=== PATIENT | female | born 1995 | race Caucasian/White ===

== ENCOUNTER → 2016-04-03 | Outpatient (REF) | payer BC | END | disposition home or self-care (01) | LOC: M LAB REF 13:01 | PROVIDERS: ATTEND Advanced Practice Midwife | DX: Z34.83 Encounter for supervision of other normal pregnancy, third trimester (principal); Z36 Encounter for antenatal screening of mother; Z3A.00 Weeks of gestation of pregnancy not specified ==

== ENCOUNTER → 2016-04-25 | Outpatient (REF) | payer BC | LOC: M LAB REF 13:24 | PROVIDERS: ATTEND Advanced Practice Midwife | DX: Z34.03 Encounter for supervision of normal first pregnancy, third trimester (principal) ==

== ENCOUNTER 2016-05-25 12:03 | Inpatient (IN) | payer BC ==
[2016-05-25] VITALS (8 sets, daily range): BP systolic 105–126; BP diastolic 58–79
[~2016-05-25] VITALS: Ht 167.6 cm; Wt 65.0 kg
[2016-05-25] MEDS ORDERED: PRENTAB9 PO (12:09)
[2016-05-25 13:30] LABS: MEAN CORPUSCULAR HEMOGLOBIN 32.5 pg (27.0-33.0); MEAN CORPUSCULAR HGB CONC 34.4 g/dl (32.0-36.5); MEAN CORPUSCULAR VOLUME 94.5 fl (80.0-96.0); RED CELL DISTRIBUTION WIDTH 12.9 % (11.5-14.5)
--- NOTE | 2016-05-25 14:08 | HPE ---
DATE OF ADMISSION: 05/25/2016 Nohelia is a 21-year-old 1, para 0 at 40-2/7 weeks gestation with an estimated date of confinement (EDC) of 05/23/2016 based on last normal menstrual period and confirmed by first trimester ultrasound. She presents to labor and delivery today with report of a spontaneous rupture of membranes at approximately 06:30. Reports the fluid is clear. Denies vaginal bleeding. Has had continual leakage of fluid, some occasional cramps and contractions and the fetus has been active. care was initiated at [facility] in the first trimester. course has been uncomplicated. OB HISTORY: Primigravida. OB LABS: Blood type is O negative. Antibody screen negative. Rubella immune. VDRL nonreactive. Urine culture no growth. Hep B surface antigen negative. HIV negative. Hep C antibody negative. Gonorrhea and chlamydia negative. She did decline genetic serum screening markers. Gestational diabetic screening 78. Her Group B Streptococcus (GBS) is negative. PAST MEDICAL HISTORY: Vaccinated for childhood varicella, otherwise negative. SURGERIES: None. FAMILY HISTORY: Hypertension. SOCIAL HISTORY: The patient is single. However, the father of the baby is at bedside and he is very supportive. She also has family support as well. She is a nonsmoker. Denies alcohol and drug use. No history of abuse physical, sexual and emotional and no history of any sexually transmitted infections. ALLERGIES: No known drug allergies. CURRENT MEDICATIONS: Include: - vitamins OBJECTIVE: Temperature 98.4, pulse 99, respirations 18, blood pressure 121/77. heart rate is 130 with moderate variability, positive accelerations, no decelerations observed. She is saad about every 2-5 minutes. They are mild to palpation. Sterile spec exam positive Nitrazine. Positive fern. Negative Valsalva. Negative pooling. Sterile vaginal exam 1 cm dilated, 80% effaced, -1 station, can palpate membranes intact. Likely leaking amniotic fluid from a higher leak or forebag rupture. ASSESSMENT: Intrauterine at 40-2/7 weeks gestation. heart rate category 1. Premature rupture of membranes. PLAN: Admit the patient to labor and delivery. Labs. Saline lock. Out of bed ad asif. Regular diet at this time. Reviewed expectant management versus labor augmentation/induction. The patient desires expectant management at this time. We will wait a few hours. I will reassess the patient's status and change for there. I do anticipate an active labor and a vaginal delivery.
[2016-05-25] MEDS ORDERED: OXYTOCIN DRIP 30 UNITS in APPROPRIATE DILUENT 1 EA IV SCH (14:45)
[2016-05-25] MEDS: LR 1,000 ML IV SCH ×2 (16:21→20:23)
[2016-05-25] MEDS ORDERED: PROMETHAZINE INJ 25 MG/ML VIAL (J2550) IV ONE (19:00)
[2016-05-25] MEDS ORDERED: BUTORPHANOL 2 MG/ML INJ (J0595) IV ONE (19:00)
[2016-05-25] MEDS ORDERED: FENTANYL 2MCG/ML ROPIVACAINE 0.2% NACL 250 ML CADD As Ordered ONE (21:09)
[2016-05-25] MEDS ORDERED: ONDANSETRON 4MG/2ML VIAL (J2405) IV PRN (22:30)
[2016-05-25] MEDS ORDERED: REFRIGERATOR IV KEYS XX PRN (22:30)
[2016-05-25] MEDS ORDERED: ePHEDrine SULFATE 25 MG/5 ML(5MG/ML) SYRINGE IV PRN (22:30)
[2016-05-25] MEDS ORDERED: diphenhydrAMINE INJ 50MG/ML VIAL (J1200) IV PRN (22:30)
[2016-05-25] MEDS ORDERED: EPIDURAL COMMENT XX SCH (22:30)
[2016-05-25] MEDS ORDERED: EPIDURAL/PCA KEYS XX PRN (22:30)
[2016-05-25] MEDS ORDERED: FENTANYL/ROPIVACAINE/NACL CADD 250 ML EPIDURAL SCH (22:30)
[2016-05-25] MEDS ORDERED: LACTATED RINGER'S 1000 ML IV PRN (22:30)
[2016-05-25] MEDS ORDERED: NALOXONE INJ 0.4 MG/1 ML VIAL (J2310) IV PRN (22:30)
[2016-05-26 00:01] LABS: CORD GAS ABE A -4.9; CORD GAS HCO3 A 22.3 MEQ/L; CORD GAS O2 SAT A 17.1 %; CORD GAS PCO2 A 49.2 mmHg; CORD GAS PH A 7.275 UNITS; CORD GAS PO2 A 11.6 mmHg; CORD GAS SBC A 18.6 MEQ/L; CORD GAS TCO2 A 23.9 MEQ/L
[2016-05-26 00:02] LABS: CORD GAS ABE V -4.5; CORD GAS HCO3 V 20.9 MEQ/L; CORD GAS O2 SAT V 50.4 %; CORD GAS PCO2 V 39.9 mmHg; CORD GAS PH V 7.337 UNITS; CORD GAS PO2 V 21.7 mmHg; CORD GAS SBC V 19.6 MEQ/L; CORD GAS TCO2 V 22.1 MEQ/L
[2016-05-26] MEDS ORDERED: OXYTOCIN DRIP 30 UNITS in APPROPRIATE DILUENT 1 EA IV SCH (00:36)
[2016-05-26] MEDS ORDERED: DIBUCAINE 1% OINTMENT 30GM TOP PRN (00:45)
[2016-05-26] MEDS ORDERED: DOCUSATE SODIUM 100 MG CAP PO PRN (00:45)
[2016-05-26] MEDS ORDERED: METHYLERGONOVINE MALEATE 0.2 MG TAB PO PRN (00:45)
[2016-05-26] MEDS ORDERED: RHOGAM 300 MCG (1500 IU) INJ (J2790) IM SCH (00:45)
[2016-05-26] MEDS ORDERED: MEASLES,MUMPS,RUBELLA VACCINE INJ (MMR-II) (90707) SC SCH (00:45)
[2016-05-26] MEDS ORDERED: ACETAMINOPHEN 500 MG TAB PO PRN (00:45)
[2016-05-26] MEDS ORDERED: LIDOCAINE 1% MDV INJ 50 ML VIAL SC ONE (01:00)
[2016-05-26] MEDS: IBUPROFEN 800 MG TAB PO PRN ×3 (01:14→17:30)
--- NOTE | 2016-05-26 01:39 | DN ---
DATE: 05/25/2016 Nohelia is a 21-year-old 1, para 1-0-0-1 now who was admitted to labor and delivery with premature rupture of membranes. IV Pitocin was started and active labor did ensue. She utilized IV pain medication as well as an epidural for her labor coping. She progressed to full dilation at 2243. She pushed to a normal spontaneous vaginal delivery of a live male infant in OA position with restitution to LOT position at 2348. There was no nuchal cord. There was noted heart rate low baseline of 95, moderate variability, positive accels, repetitive late decelerations, although heart rate did maintain moderate variability with accelerations throughout second stage. The was placed on maternal abdomen crying and active. His mouth and nares were bulb suctioned. The cord was clamped times two and cut by the father of baby. Cord blood was obtained. Cord gas arterial 7.275, cord pH with a base excess of negative 4.9. Venous cord gas pH of 7.337 with a base excess of negative 4.5. There was spontaneous expulsion of an intact placenta with three-vessel cord by Schultze mechanism was at 0000. Uterine hemostasis achieved with IV Pitocin rapid infusion and uterine fundal massage. Estimated blood loss 350 mL. Perineum and vagina inspected and noted to have a first-degree midline laceration. Laceration was repaired with 3-0 Rapide following infiltration of lidocaine in the usual fashion. [place] male weighed 7 pounds 3 ounces, 3268 grams, 9/9. Mom plans to breastfeed her son. The family have named him Reg. At the close of delivery, lap counts, instrument counts and needle counts were correct and verified. [facility]ITAL[facility]
[2016-05-26 03:00] VITALS: BP 108/60
[2016-05-26 05:28] VITALS: BP 112/60
[2016-05-26] MEDS: PRENATAL VITAMIN TAB PO SCH (07:55)
[2016-05-26 18:18] VITALS: BP 110/57
[2016-05-27 05:33] VITALS: BP 115/67
[2016-05-27] MEDS: PRENATAL VITAMIN TAB PO SCH (08:56)
[2016-05-27] MEDS ORDERED: IBUP-1114 PO (11:14)
[2016-05-27] MEDS ORDERED: ACET50TA PO (11:14)
[2016-05-27] MEDS: IBUPROFEN 800 MG TAB PO PRN (11:57)
== END 2016-05-27 12:35 | disposition home or self-care (01) | DRG 560 ==
LOC: M LDO 12:03 → M LDI 12:40 → M OBS 05-26 02:33
PROVIDERS: ADMIT Advanced Practice Midwife; ATTEND Advanced Practice Midwife
PROC: 10E0XZZ Delivery of Products of Conception, External Approach (ICD-10-PCS; principal; 2016-05-25)
PROC: 0HQ9XZZ Repair Perineum Skin, External Approach (ICD-10-PCS; 2016-05-25)
DX: O48.0 Post-term pregnancy (principal); O70.0 First degree perineal laceration during delivery; Z37.0 Single live birth; Z3A.40 40 weeks gestation of pregnancy; Z79.899 Other long term (current) drug therapy

== ENCOUNTER → 2018-02-03 | Outpatient (CLI) | payer BC ==
[2018-02-03 12:52] LABS: BASO % 0.1 % (0.0-1.0); EOS % 0.4 % (0.0-3.0); HEMATOCRIT 36.6 % (36.0-47.0); HEMOGLOBIN 11.9 g/dl (12.0-15.5); IMMATURE GRANULOCYTE % 0.4 % (0-3.0); LYMPH # 1.8 10^3/uL (1.5-6.5); MEAN CORPUSCULAR HGB CONC 32.5 g/dl (32.0-36.5); MEAN CORPUSCULAR VOLUME 95.3 fl (80.0-96.0); MONO # 0.5 10^3/uL (0.0-0.8); MONO % 5.9 % (0.0-5.0); NEUTROPHILS # 5.4 10^3/uL (1.8-7.7); NEUTROPHILS % 70.2 % (36.0-66.0); PLATELET COUNT, AUTOMATED 266 10^3/uL (150-450); RED BLOOD COUNT 3.84 10^6/uL (4.00-5.40); RED CELL DISTRIBUTION WIDTH 12.1 % (11.5-14.5); WHITE BLOOD COUNT 7.7 10^3/uL (4.0-10.0)
[2018-02-03 14:41] LABS: CHLAMYDIA DNA AMPLIFICATION NEGATIVE (NEGATIVE); GC DNA AMPLIFICATION NEGATIVE (NEGATIVE)
[2018-02-03 15:02] LABS: HBsAg Prenatal NEGATIVE (NEGATIVE); HIV 1&2 SCREEN CENTAUR NEGATIVE (NEGATIVE); RUBELLA IgG QUALITATIVE IMMUNE (IMMUNE)
[2018-02-03 15:02] LABS: HEPATITIS C VIRUS ABY INDEX 0.1 INDEX (<0.8)
== END ==
LOC: M WUC 10:02
DX: Z34.81 Encounter for supervision of other normal pregnancy, first trimester (principal); Z3A.08 8 weeks gestation of pregnancy
CPT/HCPCS: 86762

== ENCOUNTER → 2018-03-26 | Outpatient (CLI) | payer BC ==
[~2018-03-26] MED LIST: IBUP-1114 PO; MAPA500T2 PO; PRENTAB9 PO
--- NOTE | 2018-03-26 22:44 | REP ---
Clinical: Anatomical evaluation. Comparison: None . Findings: Examination demonstrates a single live intrauterine in cephalic presentation. motion is identified by technologist. Placenta is noted anterior and grade grade 1 without evidence for placenta previa or abruption. Amniotic fluid volume is normal. Cervix measures 3.5 cm in length and appears closed. No evidence for nuchal cord. Gestational age by current measurements 18 weeks 3 days with YOVANNY 08/24/2018 . FHR equals 150 beats per minute. BPD 4.2 cm 18 weeks 6 days HC 15.7 cm 18 weeks 4 days AC 12.7 cm 18 weeks 2 days FL 2.8 cm 18 weeks 5 day HL 2.7 cm 18 weeks 5 days HC/AC ratio 1.23 Estimated weight 243 grams ( 47 percentile). Anatomical assessment demonstrates normal structures including cranium, choroid plexus, cavum, cerebellum/posterior fossa, facial features, lungs, four-chamber heart/left ventricular outflow tract, diaphragm, stomach, cord insertion/three-vessel cord, kidneys/bladder, and extremities. Limited evaluation of the right cardiac ventricular outflow tract and spine noted. Impression: Single live intrauterine in cephalic presentation. Anatomical limitations as described above warrant reevaluation and follow-up. No gross abnormality appreciated. Electronically Signed by Willard Silvestre MD 03/26/2018 10:36 P
== END ==
LOC: M SMT 09:28
PROVIDERS: ATTEND Advanced Practice Midwife
DX: Z36.89 Encounter for other specified antenatal screening (principal); Z3A.18 18 weeks gestation of pregnancy

== ENCOUNTER → 2018-04-23 | Outpatient (CLI) | payer BC ==
--- NOTE | 2018-04-24 04:59 | REP ---
Clinical: Anatomical evaluation. Comparison: 03/26/2018 . Findings: Examination demonstrates a single live intrauterine in cephalic presentation. motion is identified by technologist. Placenta is noted anterior and grade grade 1 without evidence for placenta previa or abruption. Amniotic fluid volume is normal. Cervix measures 4.2 cm in length and appears closed. Nuchal cord noted. Gestational age by LMP 22 weeks 3 days with YOVANNY 08/24/2018 . Gestational age by current measurements 22 weeks 3 days with YOVANNY 08/24/2018 . FHR equals 144 beats per minute. Estimated weight 519 grams ( 49th percentile). Anatomical assessment demonstrates normal structures including cranium, choroid plexus, cavum, cerebellum/posterior fossa, facial features, lungs, four-chamber heart/ventricular outflow tracts, diaphragm, stomach, cord insertion/three-vessel cord, kidneys/bladder, spine, and extremities. Impression: 1. Single live intrauterine in cephalic presentation demonstrating appropriate interval growth. 2. Nuchal cord noted. 3. Anatomical assessment is complete and normal. Electronically Signed by Willard Silvestre MD 04/24/2018 04:51 A
== END ==
LOC: M SMT 14:44
PROVIDERS: ATTEND Advanced Practice Midwife
DX: Z34.82 Encounter for supervision of other normal pregnancy, second trimester (principal); Z3A.22 22 weeks gestation of pregnancy

== ENCOUNTER → 2018-06-06 | Outpatient (REF) | payer BC | LOC: M LAB REF 17:07 | PROVIDERS: ATTEND Advanced Practice Midwife | DX: Z34.82 Encounter for supervision of other normal pregnancy, second trimester (principal); Z3A.00 Weeks of gestation of pregnancy not specified ==

== ENCOUNTER → 2018-06-10 | Outpatient (CLI) | payer BC ==
[2018-06-10 14:10] LABS: BASO % 0.4 % (0.0-1.0); EOS % 0.1 % (0.0-3.0); HEMOGLOBIN 12.9 g/dl (12.0-15.5); LYMPH # 1.4 10^3/uL (1.5-6.5); LYMPH % 13.8 % (24.0-44.0); MEAN CORPUSCULAR HEMOGLOBIN 32.1 pg (27.0-33.0); MEAN CORPUSCULAR HGB CONC 33.1 g/dl (32.0-36.5); MONO # 0.4 10^3/uL (0.0-0.8); MONO % 4.4 % (0.0-5.0); NEUTROPHILS # 7.8 10^3/uL (1.8-7.7); NEUTROPHILS % 80.1 % (36.0-66.0); PLATELET COUNT, AUTOMATED 230 10^3/uL (150-450); RED BLOOD COUNT 4.02 10^6/uL (4.00-5.40); WHITE BLOOD COUNT 9.8 10^3/uL (4.0-10.0)
== END ==
LOC: M SMT 09:52
PROVIDERS: ATTEND Advanced Practice Midwife
DX: Z34.82 Encounter for supervision of other normal pregnancy, second trimester (principal)
CPT/HCPCS: 36415; 82950; 85025; 86850; 86900; 86901; J2790

== ENCOUNTER → 2018-07-31 | Outpatient (REF) | payer BC | LOC: M LAB REF 13:08 | PROVIDERS: ATTEND Advanced Practice Midwife | DX: Z34.83 Encounter for supervision of other normal pregnancy, third trimester (principal); Z3A.00 Weeks of gestation of pregnancy not specified ==

== ENCOUNTER → 2018-08-07 | Outpatient (CLI) | payer BC ==
--- NOTE | 2018-08-08 03:24 | REP ---
Clinical: Growth evaluation. Comparison: 04/23/2018 . Findings: Examination demonstrates a single live intrauterine in cephalic presentation. motion is identified by technologist. Placenta is noted anterior and grade two without evidence for placenta previa or abruption. Amniotic fluid volume is normal. No evidence for nuchal cord. Gestational age by LMP 37 weeks 4 days with YOVANNY 08/24/2018 . Gestational age by current measurements 37 weeks 6 days with YOVANNY 2018 . FHR equals 153 beats per minute. BPD 9.3 cm 38 weeks 0 days HC 33.5 cm 38 weeks 2 days AC 33.3 cm 37 weeks 1 day FL 7.5 cm 38 weeks 3 days HL 6.4 cm 37 weeks 2 days HC/AC ratio 1.01 Estimated weight 3287 grams ( 58 percentile). Amniotic fluid index: 10.6 cm (7.4 - 24.1) Umbilical cord SD ratio: 2.50 Impression: Single live advanced gestation in cephalic presentation demonstrating appropriate interval growth. Electronically Signed by Willard Silvestre MD 08/08/2018 03:15 A
== END ==
LOC: M RAD 08:49
PROVIDERS: ATTEND Advanced Practice Midwife
DX: O26.843 Uterine size-date discrepancy, third trimester (principal); Z3A.37 37 weeks gestation of pregnancy

== ENCOUNTER 2018-08-17 10:50 | Inpatient (IN) | payer BC ==
[2018-08-17] VITALS (12 sets, daily range): BP systolic 83–137; BP diastolic 46–77
[~2018-08-17] VITALS: Ht 167.6 cm; Wt 62.1 kg
[2018-08-17] MEDS ORDERED: LR 1,000 ML IV SCH (14:00)
[2018-08-17] MEDS ORDERED: OXYTOCIN DRIP 30 UNITS in APPROPRIATE DILUENT 1 EA IV SCH (14:00)
[2018-08-17 14:50] LABS: HEMATOCRIT 35.7 % (36.0-47.0); HEMOGLOBIN 11.9 g/dl (12.0-15.5); MEAN CORPUSCULAR HEMOGLOBIN 32.1 pg (27.0-33.0); MEAN CORPUSCULAR HGB CONC 33.3 g/dl (32.0-36.5); MEAN CORPUSCULAR VOLUME 96.2 fl (80.0-96.0); PLATELET COUNT, AUTOMATED 188 10^3/uL (150-450); RED BLOOD COUNT 3.71 10^6/uL (4.00-5.40); WHITE BLOOD COUNT 10.3 10^3/uL (4.0-10.0)
--- NOTE | 2018-08-17 15:56 | HPE ---
DATE OF ADMISSION: 08/17/2018 23-year-old, 2, para 1 female at 39 and 0/7 weeks gestation by last menstrual period and consistent with 9 week ultrasound, estimated date of confinement (EDC) is 08/24/2018, who presents with regular contractions every 3 to 4 minutes, the contractions have increased in intensity. She had a trickle of fluid and thought she might be leaking but she was not sure. Fluid is continuing to leak intermittently. She has good movement. No vaginal bleeding. COURSE: The patient initiated care at 8 weeks gestation on 01/17/2018. Her first trimester blood pressure was 112/64, weight 118 pounds. She had no complications. OBSTETRICAL HISTORY: May 2016, 40 week vaginal delivery of 7 pounds 3 ounce male . MEDICAL HISTORY: None. SURGICAL HISTORY: Breast augmentation. ALLERGIES: None. SOCIAL HISTORY: The patient denies cigarettes, alcohol or drug use during . Father of the baby is involved. She lives in [place]. FAMILY HISTORY: Noncontributory. PHYSICAL EXAMINATION: Blood pressure is 105/71, pulse 65, respiratory rate 16, afebrile. She appears mildly uncomfortable. Head and neck exam is normal. Lungs are clear. Heart has regular rate and rhythm. Abdomen is nontender, gravid. heart tones category 1. Cervix is 2 cm, 90%, -2, posterior, soft, vertex. Contractions every 2 to 4 minutes, moderately strong. Sterile speculum examination is negative ferning and Nitrazine, negative pool. Extremities are nontender. LABORATORIES: Blood type is O negative, Rubella immune, RPR nonreactive. Diabetes screen 78, Group B streptococcus (GBS) negative on 07/31/2018. ASSESSMENT: 23-year-old 2, para 1 at 39 and 0/7 weeks gestation who presents in early labor. PLAN: Contractions seem to be increasing in intensity so the patient will be admitted. May require Pitocin augmentation.
[2018-08-17] MEDS ORDERED: FENTANYL 2MCG/ML ROPIVACAINE 0.2% IN 0.9% NACL 100ML IVBAG As Ordered ONE (20:00)
[2018-08-17] MEDS ORDERED: DIBUCAINE 1% OINTMENT 30GM TOP PRN (21:30)
[2018-08-17] MEDS ORDERED: METHYLERGONOVINE MALEATE 0.2 MG TAB PO PRN (21:30)
[2018-08-17] MEDS ORDERED: DOCUSATE SODIUM 100 MG CAP PO PRN (21:30)
[2018-08-17] MEDS ORDERED: ONDANSETRON 4MG/2ML VIAL (J2405) IV PRN (21:30)
[2018-08-17] MEDS ORDERED: RHOGAM 300 MCG (1500 IU) INJ (J2790) IM SCH (21:30)
[2018-08-17] MEDS ORDERED: OXYTOCIN DRIP 30 UNITS in APPROPRIATE DILUENT 1 EA IV ONE (21:30)
[2018-08-17] MEDS ORDERED: MEASLES,MUMPS,RUBELLA VACCINE INJ (MMR-II) (90707) SC SCH (21:30)
[2018-08-17] MEDS ORDERED: LIDOCAINE 1% MDV 20ML VIAL INFIL ONE (21:30)
[2018-08-18] MEDS: ACETAMINOPHEN 500 MG TAB PO PRN ×2 (01:53→09:01)
[2018-08-18] MEDS: IBUPROFEN 800 MG TAB PO PRN ×2 (02:41→11:57)
[2018-08-18 06:03] VITALS: BP 111/71
[2018-08-18] MEDS: PRENATAL VITAMINS CHEWABLE TABLET PO SCH (09:00)
--- NOTE | 2018-08-18 12:48 | DN ---
DATE: 08/17/2018 PREDELIVERY DIAGNOSIS: 39 and 0/7 weeks gestation, labor. POSTDELIVERY DIAGNOSIS: Delivered. PROCEDURE: Spontaneous vaginal delivery. CH[employer]OL FINANCE OFFICER: Dr. Jose Gann ANESTHESIA: None. ESTIMATED BLOOD LOSS: 300 mL. FINDINGS: 7 pound 4 ounce female infant, Apgars 9 and 9. DELIVERY SUMMARY: After a short second stage of approximately 10 minutes, the patient had spontaneous delivery of a 7 pound 4 ounce female , Apgars 9 and 9, with no delivery anesthesia. There was no nuchal cord. The shoulders delivered with ease. The was handed to the mother. The cord was doubly clamped and cut. The placenta delivered spontaneously and appeared to be intact. The patient received IV Pitocin immediately after delivery of the placenta. A first degree perineal laceration was repaired with #2-0 chromic under local anesthesia in the usual fashion. Sponge and needle counts were correct.
[2018-08-18 18:05] VITALS: BP 108/64
[2018-08-19] MEDS: IBUPROFEN 800 MG TAB PO PRN (00:39)
[2018-08-19 05:31] VITALS: BP 96/50
[2018-08-19] MEDS: PRENATAL VITAMINS CHEWABLE TABLET PO SCH (08:02)
[2018-08-19] MEDS ORDERED: ACET-683 PO (11:17)
[2018-08-19] MEDS ORDERED: IBUP80TA PO (11:17)
== END 2018-08-19 12:10 | disposition home or self-care (01) | DRG 560 ==
LOC: M LDO 10:50 → M LDI 13:26 → M OBS 23:13
PROVIDERS: ADMIT Specialist; ATTEND Specialist
PROC: 10E0XZZ Delivery of Products of Conception, External Approach (ICD-10-PCS; principal; 2018-08-17)
PROC: 0HQ9XZZ Repair Perineum Skin, External Approach (ICD-10-PCS; 2018-08-17)
DX: O70.0 First degree perineal laceration during delivery (principal); Z3A.39 39 weeks gestation of pregnancy; Z37.0 Single live birth

== ENCOUNTER 2019-03-24 11:35 | Emergency (ER) | payer BC ==
[~2019-03-24] VITALS: Ht 167.6 cm; Wt 52.3 kg
[~2019-03-24 11:35] MED LIST changes: +ACET-683 PO; +IBUP80TA PO
[2019-03-24] MEDS ORDERED: SERT-138 (11:51)
[2019-03-24 14:55] LABS: BASO % 0.3 % (0.0-1.0); EOS # 0.1 10^3/uL (0.0-0.5); EOS % 0.5 % (0.0-3.0); HEMATOCRIT 42.4 % (36.0-47.0); HEMOGLOBIN 13.7 g/dl (12.0-15.5); MEAN CORPUSCULAR HEMOGLOBIN 30.5 pg (27.0-33.0); MEAN CORPUSCULAR HGB CONC 32.3 g/dl (32.0-36.5); MEAN CORPUSCULAR VOLUME 94.4 fl (80.0-96.0); MONO # 0.6 10^3/uL (0.0-0.8); MONO % 4.5 % (0.0-5.0); NEUTROPHILS # 8.3 10^3/uL (1.5-8.5); NEUTROPHILS % 68.8 % (36.0-66.0); PLATELET COUNT, AUTOMATED 351 10^3/uL (150-450); RED BLOOD COUNT 4.49 10^6/uL (4.00-5.40); WHITE BLOOD COUNT 12.1 10^3/uL (4.0-10.0)
[2019-03-24 15:13] LABS: ALBUMIN 4.6 GM/DL (3.2-5.2); ALT/SGPT 13 U/L (12-78); BILIRUBIN,DIRECT 0.2 MG/DL (0.0-0.2); BILIRUBIN,TOTAL 0.5 MG/DL (0.2-1.0); BLOOD UREA NITROGEN 9 MG/DL (7-18); CALCIUM LEVEL 10.1 MG/DL (8.5-10.1); CARBON DIOXIDE LEVEL 24 MEQ/L (21-32); CHLORIDE LEVEL 103 MEQ/L (98-107); CREATININE FOR GFR 0.67 MG/DL (0.55-1.30); GLOMERULAR FILTRATION RATE > 60.0 (>60); GLUCOSE, FASTING 83 MG/DL (70-100); LIPASE 53 U/L (73-393); POTASSIUM SERUM 3.9 MEQ/L (3.5-5.1); SODIUM LEVEL 137 MEQ/L (136-145); TOTAL PROTEIN 8.6 GM/DL (6.4-8.2)
[2019-03-24 15:19] LABS: HCG, SERUM QUALITATIVE POSITIVE (NEGATIVE)
[2019-03-24 18:04] LABS: HCG, SERUM QUANTITATIVE 259 MIU/ML
--- NOTE | 2019-03-24 18:25 | REPVR ---
PROCEDURE INFORMATION: Exam: US First Trimester, Transabdominal Exam date and time: 03/24/2019 5:52 PM Age: 24 years old Clinical indication: complicated by abdominal or pelvic pain; Lower; First trimester; Gestational age or lmp: 4wks; ; Additional info: Vaginal bleeding TECHNIQUE: Imaging protocol: Real-time transabdominal obstetrical ultrasound of the maternal pelvis and a first trimester , less than 14 weeks 0 days, with image documentation. COMPARISON: No relevant prior studies available. FINDINGS: Uterus measures 6.1 x 4.2 x 5.1 cm. No evidence of gestational sac within the endometrial cavity. Endometrial stripe is regular in appearance and measures 19 mm. Right ovary appears normal, measuring 2.4 x 1.1 x 2.2 cm. Doppler demonstrates normal vascular flow. Left ovary appears normal, measuring 2.4 x 1.3 x 1.2 cm. Doppler demonstrates normal vascular flow. Trace free fluid is present in the pelvis. IMPRESSION: No evidence of intrauterine . No ancillary evidence of ectopic , although ectopic cannot be excluded. Differential diagnosis includes spontaneous , very early intrauterine , or ectopic . Electronically signed by: Miller Singh On 03/24/2019 18:24:31 PM
[2019-03-24] MEDS ORDERED: RHOGAM 300 MCG (1500 IU) INJ (J2790) IM ONE (18:30)
[2019-03-24 19:30] VITALS: BP 121/75
== END 2019-03-24 19:48 | disposition home or self-care (01) ==
LOC: M ED 11:35
DX: O20.0 Threatened abortion (principal); O99.341 Other mental disorders complicating pregnancy, first trimester; F41.9 Anxiety disorder, unspecified; Z79.899 Other long term (current) drug therapy; Z3A.01 Less than 8 weeks gestation of pregnancy
CPT/HCPCS: 36415; 76801; 76817; 80048; 80076; 83690; 84702; 84703; 85025; 86850; 86901; 93976; 96372; 99284; J2790

== ENCOUNTER → 2019-03-26 | Outpatient (CLI) | payer BC ==
[~2019-03-26] MED LIST changes: +SERT-138
== END ==
LOC: M WUC 11:09
PROVIDERS: ATTEND Physician Assistant Medical
DX: O20.0 Threatened abortion (principal); Z3A.00 Weeks of gestation of pregnancy not specified

== ENCOUNTER → 2019-09-19 | Outpatient (REF) | payer BC ==
[2019-09-19 19:46] LABS: CHLAMYDIA DNA AMPLIFICATION NEGATIVE (NEGATIVE); GC DNA AMPLIFICATION NEGATIVE (NEGATIVE)
== END ==
LOC: M LAB REF 17:27
PROVIDERS: ATTEND Physician Assistant
DX: R30.0 Dysuria (principal)

== ENCOUNTER → 2020-01-24 | Outpatient (REF) | payer BC | LOC: M WUC 10:05 | PROVIDERS: ATTEND Nurse Practitioner Family | DX: R30.0 Dysuria (principal) ==

== ENCOUNTER → 2020-10-29 | Outpatient (REF) | payer BC | LOC: M LAB REF 19:47 | PROVIDERS: ATTEND Physician Assistant | DX: J02.9 Acute pharyngitis, unspecified (principal) ==

== ENCOUNTER → 2023-12-16 | Outpatient (REF) | payer OTHER | LOC: M PLALAB 14:37 | PROVIDERS: ATTEND Advanced Practice Midwife | DX: Z34.81 Encounter for supervision of other normal pregnancy, first trimester (principal) ==

== ENCOUNTER → 2024-01-14 | Outpatient (CLI) | payer OTHER ==
[2024-01-14 17:45] LABS: HEMATOCRIT 36.3 % (36.0-47.0); HEMOGLOBIN 11.8 g/dl (12.0-15.5); MEAN CORPUSCULAR HEMOGLOBIN 31.1 pg (27.0-33.0); MEAN CORPUSCULAR HGB CONC 32.5 g/dl (32.0-36.5); MEAN CORPUSCULAR VOLUME 95.5 fl (80.0-96.0); PLATELET COUNT, AUTOMATED 256 10^3/uL (150-450); WHITE BLOOD COUNT 11.5 10^3/uL (4.0-10.0)
[2024-01-14 18:04] LABS: GC DNA AMPLIFICATION NEGATIVE (NEGATIVE)
[2024-01-14 18:37] LABS: HIV 1&2 SCREEN NEGATIVE (NEGATIVE)
[2024-01-14 18:45] LABS: HEPATITIS C VIRUS ABY INDEX < 0.02 INDEX (<0.8)
== END ==
LOC: M WUC 14:32
PROVIDERS: ATTEND Advanced Practice Midwife
DX: Z34.81 Encounter for supervision of other normal pregnancy, first trimester (principal)

== ENCOUNTER → 2024-02-21 | Outpatient (CLI) | payer OTHER | LOC: M WHC 07:36 | PROVIDERS: ATTEND Advanced Practice Midwife | DX: Z34.82 Encounter for supervision of other normal pregnancy, second trimester (principal) ==

== ENCOUNTER → 2024-04-15 | Outpatient (CLI) | payer OTHER ==
[2024-04-15 14:44] LABS: HEMATOCRIT 36.6 % (36.0-47.0); HEMOGLOBIN 11.6 g/dl (12.0-15.5); MEAN CORPUSCULAR HEMOGLOBIN 31.2 pg (27.0-33.0); MEAN CORPUSCULAR HGB CONC 31.7 g/dl (32.0-36.5); MEAN CORPUSCULAR VOLUME 98.4 fl (80.0-96.0); PLATELET COUNT, AUTOMATED 256 10^3/uL (150-450); RED BLOOD COUNT 3.72 10^6/uL (4.00-5.40); WHITE BLOOD COUNT 11.2 10^3/uL (4.0-10.0)
[2024-04-15 14:47] LABS: GLUCOSE CHALLENGE TEST 1 HOUR 79 MG/DL (LESS THAN 140)
[2024-04-15 15:40] LABS: HIV 1&2 SCREEN NEGATIVE (NEGATIVE)
[2024-04-15 16:39] LABS: GC DNA AMPLIFICATION NEGATIVE (NEGATIVE)
== END ==
LOC: M PLALAB 09:28
PROVIDERS: ATTEND Obstetrics & Gynecology
DX: Z34.82 Encounter for supervision of other normal pregnancy, second trimester (principal)
CPT/HCPCS: 36415; 82950; 85027; 86780; 86803; 86850; 86900; 86901; 87389; 87810; 87850; J2790

== ENCOUNTER → 2024-04-28 | Outpatient (CLI) | payer OTHER | LOC: M WHC 11:29 | PROVIDERS: ATTEND Obstetrics & Gynecology | DX: Z36.2 Encounter for other antenatal screening follow-up (principal); Z3A.28 28 weeks gestation of pregnancy ==

== ENCOUNTER → 2024-06-23 | Outpatient (REF) | payer OTHER | LOC: M SFHCWAGY 10:00 | PROVIDERS: ATTEND Specialist | DX: Z34.83 Encounter for supervision of other normal pregnancy, third trimester (principal) ==

== ENCOUNTER 2024-07-13 21:54 | Inpatient (IN) | payer OTHER ==
[~2024-07-13] VITALS: Ht 167.6 cm; Wt 72.5 kg
[2024-07-13] MEDS ORDERED: LACTATED RINGER'S 1000 ML IV STA (22:19)
[2024-07-13] MEDS ORDERED: METHYLERGONOVINE MALEATE 0.2MG/ML 1ML VIAL IM PRN (22:20)
[2024-07-13] MEDS ORDERED: OXYTOCIN INJ 10UNITS/ML 1ML VIAL IM PRN (22:20)
[2024-07-13] MEDS ORDERED: TRANEXAMIC ACID INJection 1,000 MG in NS 100 ML IV PRN (22:20)
[2024-07-13] MEDS ORDERED: CARBOPROST TROMETHAMINE 250 MCG/ML AMP IM PRN (22:20)
[2024-07-13 22:56] VITALS: BP 99/69
[2024-07-13 22:57] LABS: HEMATOCRIT 34.4 % (36.0-47.0); HEMOGLOBIN 11.7 g/dl (12.0-15.5); PLATELET COUNT, AUTOMATED 179 10^3/uL (150-450); RED BLOOD COUNT 3.66 10^6/uL (4.00-5.40); WHITE BLOOD COUNT 9.5 10^3/uL (4.0-10.0)
[2024-07-13 23:50] LABS: HIV 1&2 SCREEN NEGATIVE (NEGATIVE)
[2024-07-13 23:58] LABS: HEPATITIS C VIRUS ABY INDEX 0.04 INDEX (<0.8)
[2024-07-14] VITALS (12 sets, daily range): BP systolic 97–140; BP diastolic 56–78; O2SAT 96–97
[2024-07-14] MEDS: ONDANSETRON 4MG 2ML VIAL IV ONE (07:12)
[2024-07-14] MEDS: LIDOCAINE 1% MDV 20ML VIAL INFIL PRN (08:39)
[2024-07-14] MEDS: OXYTOCIN DRIP 30 UNITS in IV 1 EA IV PRN (08:39)
[2024-07-14] MEDS ORDERED: MOM 30ML SUSPENSION UDC PO PRN (08:45)
[2024-07-14] MEDS ORDERED: DOCUSATE SODIUM 100MG CAPSULE PO PRN (08:45)
[2024-07-14] MEDS ORDERED: ANUSOL HC CREAM 30GM TOP PRN (08:45)
[2024-07-14] MEDS ORDERED: ACETAMINOPHEN 325 MG TAB PO PRN (08:45)
[2024-07-14] MEDS ORDERED: IBUPROFEN 800 MG TAB PO PRN (08:45)
[2024-07-14] MEDS: KETOROLAC 30 MG/ML 1ML VIAL IV ONE (08:54)
[2024-07-14] MEDS: PRENATAL VITAMINS CHEWABLE TABLET PO SCH (11:52)
[2024-07-14] MEDS: DIBUCAINE 1% OINTMENT 30GM TOP PRN (11:53)
[2024-07-14] MEDS: ACETAMINOPHEN 500 MG TAB PO PRN (15:49)
[2024-07-14] MEDS ORDERED: IBUPROFEN 600MG TAB PO PRN (17:00)
[2024-07-14] MEDS: IBUPROFEN 800 MG TAB PO PRN (21:22)
[2024-07-15 06:00] VITALS: BP 116/72; O2SAT 97
[2024-07-15] MEDS ORDERED: IBUP-1022 PO (13:01)
[2024-07-15] MEDS: RHOGAM 300MCG (1500IU) INJ IM SCH (14:38)
[2024-07-16] MEDS ORDERED: MEASLES,MUMPS,RUBELLA VACCINE INJ (MMR-II) SC.IMMUN ONE (09:00)
== END 2024-07-15 18:20 | disposition home or self-care (01) | DRG 560 ==
LOC: M LDO 21:54 → M LDI 22:28 → M OBS 07-14 11:18
PROVIDERS: ADMIT Advanced Practice Midwife; ATTEND Advanced Practice Midwife
PROC: 0HQ9XZZ Repair Perineum Skin, External Approach (ICD-10-PCS; principal; 2024-07-14)
PROC: 10E0XZZ Delivery of Products of Conception, External Approach (ICD-10-PCS; principal; 2024-07-14)
DX: O69.81X0 Labor and delivery complicated by cord around neck, without compression, not applicable or unspecified (principal); Z37.0 Single live birth; Z3A.39 39 weeks gestation of pregnancy; O70.0 First degree perineal laceration during delivery